=== PATIENT | female | born 1950 | race American Indian/Alaskan Native ===

== ENCOUNTER 2018-04-19 09:44 | Day surgery (SDC) | payer MEDICARE ==
[2018-04-19] MEDS ORDERED: NACL 0.9% 1000 ML 1,000 ML ONE (09:56)
--- NOTE | 2018-04-19 11:34 | Anesthesia Consultation ---
Anesthesia Consult and Med Hx Date of service: 04/19/18 - Airway Anesthetic Teeth Evaluation: Poor ROM Head & Neck: Adequate Mental/Hyoid Distance: Adequate Mallampati Class: Class II Intubation Access Assessment: Probably Good - Pulmonary Exam CTA: Yes - Cardiac Exam Cardiac Exam: RRR - Pre-Operative Health Status ASA Pre-Surgery Classification: ASA3 - Pulmonary Hx Smoking: Yes (QUIT 6 YEARS AGO) - Cardiovascular System Hx Hypertension: Yes - Endocrine Hx Liver Disease: Yes (Hep C ) Hx Non-Insulin Dependent Diabetes: Yes
--- NOTE | 2018-04-19 11:34 | Anesthesia Day of Surgery ---
Anesthesia Day of Surgery - Day of Surgery Patient Examined: Yes Patient H&P Reviewed: Yes Patient is NPO: Yes
[2018-04-19] MEDS ORDERED: NACL 0.9% 1000 ML 1,000 ML IV SCH (12:00)
[2018-04-19] MEDS ORDERED: WATER FOR IRRIG STERILE IR ONE (13:23)
[2018-04-19] MEDS ORDERED: DIPRIVAN 10 MG/ML IV ONE (13:43)
--- NOTE | 2018-04-19 13:46 | Operative Report ---
Operative Report Operative Report: Date of procedure: 04/19/2018 Procedure: Colonoscopy. Attending physician: Kendrick Bullock MD It Engineer: Kendrick Bullock MD Indication: Patient is a 67-year-old female who presents for screening colonoscopy. She has a past history of colon polyps. Her last colonoscopy was in 2012. The colonoscopy serves to evaluate patient for colorectal cancer screening. Consent: Informed consent was obtained after advising the patient and family regarding nature of this procedure, its indications, potential benefits as well as possible complications including but not limited to bleeding perforation and adverse reaction to medication, infection as well as other cardiopulmonary complications. An informed written and verbal consent was then obtained after due opportunity was provided for questions and answers. Monitoring: Patient was monitored continuously with pulse oximetry and electrocardiographic recordings as well as blood pressure recordings. Vital signs remained stable throughout this procedure with no untoward events. Preoperative assessment: Patient was assessed immediately prior to this procedure for capacity to tolerate monitored anesthesia care and moderate sedation as well as general anesthesia. Patient's ASA classification is 2, Mallampati class is 2, Hyomental distance is 3. Instrument: [employer] video colonoscope Medications: Propofol given intravenously in divided doses. For details please refer to anesthesia records. Description of procedure: Patient was placed in the left lateral decubitus position after achieving sedation, a digital rectal examination was performed following which the colonoscope was introduced into the anal verge and advanced to the cecum which was identified by the cecal valve, the appendiceal orifice, as well as by the cecal strap and direct transillumination. The colonoscope was subsequently withdrawn with careful inspection of all mucosal surfaces. Patient tolerated this procedure well and was subsequently taken to the recovery room. The following findings were noted. Findings: The entirety colon to the cecum was normal. On the retroflex view at the anal verge, patient had internal hemorrhoids. Impression: Internal hemorrhoids, otherwise normal colonoscopy. Plan: High-fiber diet. Repeat colonoscopy in 5 years.
--- NOTE | 2018-04-19 13:47 | Discharge Summary ---
Short Stay Discharge Plan Activity: advance as tolerated Weight Bearing Status: Weight Bear as Tolerated Diet: regular Follow up with: HIWOT ELLIOTT MD [Primary Care Provider] - 7 Days
[2018-04-19 14:24] VITALS: BP 135/60
== END 2018-04-19 09:45 | disposition home or self-care (01) ==
LOC: GIO 09:44
PROVIDERS: ATTEND Internal Medicine Gastroenterology
DX: Z12.11 Encounter for screening for malignant neoplasm of colon (principal); K64.8 Other hemorrhoids; I10 Essential (primary) hypertension; E11.9 Type 2 diabetes mellitus without complications; B19.20 Unspecified viral hepatitis C without hepatic coma; Z86.010 Personal history of colon polyps; Z87.891 Personal history of nicotine dependence
CPT/HCPCS: 82962; G0105; J2704; J7030